=== PATIENT | female | born 1955 | race Caucasian/White ===

== ENCOUNTER 2022-05-28 20:31 | Emergency (ER) | payer MEDICARE ==
--- NOTE | 2022-05-28 22:04 | ED Physician Documentation ---
History of Present Illness - Stated complaint Stated Complaint: BILAT EYE PX - Chief complaint Chief Complaint: Heent - Additonal information Additional information: 67-year-old female who is currently residing in her car presents emergency department for the sensation of dust or debris in it. She reports that the roof of her vehicle is old and is constantly shedding small particles of dust. It is especially bothersome when she wakes up in the morning. She denies any vision changes or eye pain. She is tried multiple allergy drops without relief of symptoms. No cough or congestion. Does not wear contact lenses Review of Systems Constitutional: denies: Fever, Chills Eyes: reports: Irritation Ears: reports: Reviewed and negative Nose: reports: Reviewed and negative Cardiac: reports: Reviewed and negative Respiratory: reports: Reviewed and negative Skin: reports: Reviewed and negative PD PAST MEDICAL HISTORY - Allergies Allergies/Adverse Reactions: Allergies Allergy/AdvReac Type Severity Reaction Status Date / Time Penicillins Allergy Unknown Verified 05/28/22 21:09 Sulfa (Sulfonamide Allergy Unknown Verified 05/28/22 21:09 Antibiotics) PD ED PE EXPANDED - General General: Alert, No acute distress - Eyes Eyes: PERRL, Normal accommodation, EOMI, Normal eyelids, No eyelid FB (everted), Anterior chambers clear. No: Nl conjunctiva/sclera, Exudate, Corneal abrasion, Corneal ulcer, Fluorescein uptake Results - Vitals Vitals: Vital Signs - 24 hr 05/28/22 21:05 Temperature 36.3 C L Heart Rate 65 Respiratory 18 Rate Blood Pressure 123/89 H O2 Saturation 100 Oxygen O2 Source Room air PD MEDICAL DECISION MAKING - ED course Complexity details: d/w patient ED course: 67-year-old female presents emergency department for evaluation of irritation to both of her eyes. Currently residing in her car and finds that the roof of the vehicle constantly sheds small particles of dust and debris which she feels are irritating. The eye exam was on remarkable. Negative fluorescein uptake. Clear chambers. No conjunctival injection or irritation. At the bedside we did irrigate both eyes with 40 mils of saline which she felt was helpful. Unfortunately this will be a recurrent problem and she continues to reside in her car. She is recommended to obtain lubricating eyedrops and to use a mask over her eyes when asleep at night Departure - Departure Disposition: 01 Home, Self Care Clinical Impression: Irritation of both eyes Condition: Stable Record reviewed to determine appropriate education?: Yes Comments: Deepthi unfortunately there is very little that the emergency department can do for her eye irritation. As long as you reside in your car it will continue to be a recurrent problem. In order to help improve it I do recommend that you buy lubricating eyedrops such as Akwa Tears. I also recommend that you sleep with the mask or cover over your eyes at night. I do recommend close follow-up with an [facility]. If at any point you have loss of vision, fevers milky drainage or swelling of the eyes then please return to the ER for second evaluation
[2022-05-28 22:16] VITALS: BP 120/80
== END 2022-05-28 22:15 | disposition home or self-care (01) ==
LOC: ED 20:31
DX: H57.13 Ocular pain, bilateral (principal); Z59.02 Unsheltered homelessness
CPT/HCPCS: 99281; 99282

== ENCOUNTER 2022-12-02 09:21 | Outpatient (CLI) | payer MEDICARE | END 2022-12-02 09:22 | disposition EMS.NT | LOC: EMS 09:21 | DX: R46.89 Other symptoms and signs involving appearance and behavior (principal) ==